=== PATIENT | male | born 1995 | race Two or more races ===

== ENCOUNTER 2018-11-27 12:17 | Emergency (ER) | payer SELFPAY ==
[2018-11-27 12:42] VITALS: BP 109/72
--- NOTE | 2018-11-27 13:06 | UC ---
Laceration HPI - HPI Summary HPI Summary: 22 y/o male presents to the urgent care c/o pt opened a can yesterday evening, and lacerated his 3rd finger on the left hand , but it seems to still be bleeding. pt states his last tetanus was at 12 years old. - History Of Current Complaint Chief Complaint: UCLaceration Stated Complaint: FINGER LAC Time Seen by Provider: 11/27/18 13:04 Hx Obtained From: Patient Laceration Location: Finger - left middle and ring finger laceration Pain Intensity: 2 - Allergies/Home Medications Allergies/Adverse Reactions: Allergies Allergy/AdvReac Type Severity Reaction Status Date / Time ibuprofen [From Advil] Allergy Unknown Verified 11/27/18 12:41 Reaction Details Penicillins Allergy Unknown Verified 11/27/18 12:41 Reaction Details Home Medications: Home Medications Disloretadine 1 tab PO DAILY PRN 11/27/18 [History Confirmed 11/27/18] Mesalizine 2 tab PO DAILY 11/27/18 [History Confirmed 11/27/18] Paracitamol 1,000 mg PO ONCE PRN 11/27/18 [History] azaTHIOprine [Azathioprine] 2 tab PO DAILY 11/27/18 [History Confirmed 11/27/18] PMH/Surg Hx/FS Hx/Imm Hx Previously Healthy: Yes - Surgical History Surgical History: None - Social History Alcohol Use: Occasionally Substance Use Type: None Smoking Status (MU): Light Every Day Tobacco Smoker Amount Used/How Often: 3-4 cig/day Household Exposure Type: Cigarettes Physical Exam Vital Signs: Initial Vital Signs Temp 98.7 F 11/27/18 12:34 Pulse 56 11/27/18 12:34 Resp 18 11/27/18 12:34 BP 109/72 11/27/18 12:34 Pulse Ox 100 11/27/18 12:34 Laceration Course/Dx - Differential Dx - Laceration/Wound Differental Diagnoses: Abrasion, Cellulitis, Healing Wound, Laceration, Puncture Wound, Tendon Laceration - Diagnosis Provider Diagnosis: Laceration of left middle finger, Laceration of left ring finger Discharge - Sign-Out/Discharge Documenting (check all that apply): Patient Departure - D/C home All imaging exams completed and their final reports reviewed: No Studies - Discharge Plan Condition: Stable Disposition: HOME Prescriptions: Bacitracin OINTMENT* 1 applic TOPICAL BID #1 tube Patient Education Materials: Care For Your Stitches (ED), Laceration (ED) Referrals: Raudel Morrell MD [Primary Care Provider] - 1 Week Additional Instructions: 1-Please apply Bacitracin oint topical antibiotic over the wound. Keep wound clean and dry 2- F/u suture removal in 10-12 days days w/ your PCP or here at the urgent care. 3-Take Ibuprofen or Tylenol PO q6-8hrs prn for pain or swelling. 4- If you develop fever or redness around your finger please return to the Urgent care or your PCP for further management. - Billing Disposition and Condition Condition: STABLE Disposition: Home
[2018-11-27] MEDS ORDERED: Tetan/Diph/Pertus SYR(Tdap)* 0.5 ML SYR(BOOSTRIX) use SYR IM ONE (13:17)
[2018-11-27] MEDS ORDERED: Lidocaine 1% MPF ** 5 ML VIAL INJ ONE (13:17)
== END 2018-11-27 14:22 | disposition home or self-care (01) ==
LOC: UCEAST 12:17
DX: S61.213A Laceration without foreign body of left middle finger without damage to nail, initial encounter (principal); S61.215A Laceration without foreign body of left ring finger without damage to nail, initial encounter; W26.8XXA Contact with other sharp object(s), not elsewhere classified, initial encounter; Y92.9 Unspecified place or not applicable; F17.210 Nicotine dependence, cigarettes, uncomplicated; Z88.0 Allergy status to penicillin
CPT/HCPCS: 12001; 90471; 90715; 99212; G0463

== ENCOUNTER 2018-12-06 16:25 | Emergency (ER) | payer SELFPAY ==
[2018-12-06 16:55] VITALS: BP 112/71
--- NOTE | 2018-12-06 17:07 | UC ---
HPI Wound/Suture Re-check - HPI Summary HPI Summary: 22-year-old male who had a laceration to his left middle finger palmar side 10 days ago and is here for suture removal. He's had no difficulties with infection. - History Of Current Complaint Chief Complaint: UCSkin Stated Complaint: suture removal Time Seen by Provider: 12/06/18 16:59 Onset/Duration: Sudden Onset Severity: Mild Pain Intensity: 0 - Allergies/Home Medications Allergies/Adverse Reactions: Allergies Allergy/AdvReac Type Severity Reaction Status Date / Time ibuprofen [From Advil] Allergy Unknown Verified 12/06/18 16:55 Reaction Details Penicillins Allergy Unknown Verified 12/06/18 16:55 Reaction Details PMH/Surg Hx/FS Hx/Imm Hx Previously Healthy: Yes - Surgical History Surgical History: None - Family History Known Family History: Positive: None - Pt denies FMHX, Non-Contributory - Social History Alcohol Use: Occasionally Substance Use Type: None Smoking Status (MU): Light Every Day Tobacco Smoker Amount Used/How Often: 3-4 cig/day Household Exposure Type: Cigarettes - Immunization History Most Recent Tetanus Shot: [id number] Review of Systems All Other Systems Reviewed And Are Negative: Yes Skin: Positive: Other - Healed laceration palmar side of left middle finger. Motor: Positive: Negative Neurovascular: Positive: Negative Musculoskeletal: Positive: Negative Neurological: Positive: Negative Is Patient Immunocompromised?: No Physical Exam Triage Information Reviewed: Yes Appearance: Well-Appearing, No Pain Distress, Well-Nourished Vital Signs: Initial Vital Signs Temp 98.5 F 12/06/18 16:50 Pulse 60 12/06/18 16:50 Resp 16 12/06/18 16:50 BP 112/71 12/06/18 16:50 Pulse Ox 100 12/06/18 16:50 Vital Signs Reviewed: Yes Musculoskeletal Exam: Normal Neurological Exam: Normal Psychological Exam: Normal Skin: Positive: Other - 6 sutures appear to be in place and the laceration is healing nicely. Course/Dx - Course Course Of Treatment: Sutures were removed without difficulty. A Band-Aid was applied. Patient has good finger strength with flexion extension against resistance. He's follow-up with his primary care provider as needed. - Diagnosis Provider Diagnosis: Encounter for removal of sutures Discharge - Sign-Out/Discharge Documenting (check all that apply): Patient Departure All imaging exams completed and their final reports reviewed: No Studies - Discharge Plan Condition: Good Disposition: HOME Patient Education Materials: Stitches Removal (ED) Referrals: Raudel Morrell MD [Primary Care Provider] - Additional Instructions: Follow-up with your primary care provider as needed. - Billing Disposition and Condition Condition: GOOD Disposition: Home
== END 2018-12-06 17:12 | disposition home or self-care (01) ==
LOC: UCEAST 16:25
DX: S61.213D Laceration without foreign body of left middle finger without damage to nail, subsequent encounter (principal); X58.XXXD Exposure to other specified factors, subsequent encounter; F17.210 Nicotine dependence, cigarettes, uncomplicated; Z88.0 Allergy status to penicillin